=== PATIENT | male | born 1960 | race Caucasian/White ===

== ENCOUNTER 2021-09-21 11:35 | Emergency (ER) | payer SELFPAY ==
[2021-09-21 11:57] VITALS: BP 172/104; PULSE 69; RESP 16; TEMP 37.1; O2SAT 98; BMI 26.6
--- NOTE | 2021-09-21 12:20 | ED.WOUNDLAC ---
HPI - Wound/Laceration General Time Seen by Provider: 12:19 Date Seen: 09/21/21 Chief Complaint: Laceration/Wound Stated Complaint: right hand laceration Time Seen by Provider: 09/21/21 12:15 History of Present Illness HPI narrative: This 61-year-old male comes in with a laceration to his right hand. He tripped and put his hand down on a sharp piece of metal causing a laceration in the palm of his right hand overlying the 5th metatarsal. He does not have any tendon or nerve deficit. He states that his tetanus is up-to-date. Related Data Home Medications Medication Instructions Recorded Confirmed atenolol 09/21/21 citalopram 09/21/21 Allergies Allergy/AdvReac Type Severity Reaction Status Date / Time No Known Drug Allergies Allergy Verified 09/21/21 12:05 Review of Systems Status of ROS: Reports: 10 or more systems reviewed and unremarkable except as noted in History and below Narrative: Constitutional: No fevers, no weight gain or loss. Eyes: No discharge. No vision changes. HENT: No congestion, no sore throat, no ear pain. Cardiovascular: No chest pain, no palpitations. Respiratory: No shortness of breath, no wheezes, no cough. Gastrointestinal: No abdominal pain, no vomiting, no diarrhea. Genitourinary: No dysuria, no hematuria. Musculoskeletal: Normal range of motion. Skin: No rashes, no pruritis. Neurological: No dizziness, weakness, sensory change, speech change. Endo/Heme/Allergies: No bruising or bleeding. No polydipsia. Pysch: no suicidality, no anxiety, no insomnia. All other systems reviewed and are negative. Exam Narrative: Exam Narrative: Constitutional: Well-developed, well-nourished, no acute distress. HEENT: Normocephalic, atraumatic. Neck: Normal range of motion. Nontender. Supple. Heart: Intact distal pulses. Lungs: No chest discomfort. No wheezes, rhonchi, or rales. Abdomen: Nontender. Back: Normal range of motion. Extremities: Normal range of motion. Laceration in the right hand extending from the base of the palm at the ulnar aspect toward the MP joint of the 5th metatarsal. There is no tendon or nerve deficit. Range of motion is intact. The length of the wound is approximately 8 cm. Skin: Intact. No rash. Warm. No erythema or pallor. Neurologic: No altered sensation. No weakness. Alert and oriented. Psychiatric: No suicidality. No anxiety or depression. No insomnia. Nursing notes and vitals signs are reviewed. Const: Vital Signs, click to edit/add: Vital Signs - 24 hr 09/21/21 11:57 Temperature 98.7 F Pulse Rate [Left R adial] 69 Respiratory Rate 16 Blood Pressure [Le ft Upper Arm] 172/104 H Pulse Oximetry 98 Course Vital Signs Vital signs: Initial Vital Signs Temperature 98.7 F 09/21/21 11:57 Temperature Source Temporal Artery Scan 09/21/21 11:57 Pulse Rate 69 09/21/21 11:57 Pulse Rhythm 09/21/21 11:57 Pulse Strength 0+ Absent 09/21/21 11:57 Respiratory Rate 16 09/21/21 11:57 Blood Pressure 172/104 H 09/21/21 11:57 Blood Pressure Mean 126 09/21/21 11:57 Blood Pressure Position Sitting 09/21/21 11:57 Pulse Oximetry 98 09/21/21 11:57 Oxygen Delivery Method 09/21/21 11:57 Vital Signs Temperature 98.7 F 09/21/21 11:57 Pulse Rate 69 09/21/21 11:57 Respiratory Rate 16 09/21/21 11:57 Blood Pressure 172/104 H 09/21/21 11:57 Pulse Oximetry 98 09/21/21 11:57 Temperature 98.7 F 09/21/21 11:57 Pulse Rate 69 09/21/21 11:57 Respiratory Rate 16 09/21/21 11:57 Blood Pressure 172/104 H 09/21/21 11:57 Pulse Oximetry 98 09/21/21 11:57 MDM - Wound/Laceration MDM Narrative Medical decision making narrative: This patient comes in with a large laceration to his right hand. The wound was cleansed in Hibiclens and then anesthesia was acquired by using 1% lidocaine with epinephrine. The wound was further cleansed and explored to its base. He is not showing any sign of nerve or tendon dysfunction. The wound edges were approximated with 4.0 Ethilon sutures. Seventeen sutures were placed in interrupted fashion. Instructions were giving regarding wound care and the need for suture removal in 10-12 days. Discharge Plan Discharge Clinical Impression: Laceration Patient Disposition: Home, Self-Care Condition: Improved Additional Instructions: Hand laceration. Keep wound clean and dry. Return to clinic or urgent care in 10-12 days for suture removal. Activity Level: Activity as Tolerated Prescriptions: No Action atenolol 0RF citalopram 0RF Stand Alone Forms: [employer] Info Instructions
== END 2021-09-21 13:40 | disposition home or self-care (01) ==
PROVIDERS: Emergency Provider Emergency Medicine Emergency Medical Services
DX: S61.411A Laceration without foreign body of right hand, initial encounter (principal); W26.9XXA Contact with unspecified sharp object(s), initial encounter
CPT/HCPCS: 12004; 99283

== ENCOUNTER 2023-07-25 11:12 | Outpatient (CLI) | payer OTHER, SELFPAY | END 2023-07-25 11:13 | disposition home or self-care (01) | PROVIDERS: PCP Nurse Practitioner Family; Visit Provider Nurse Practitioner Family | DX: I10 Essential (primary) hypertension (principal); R06.00 Dyspnea, unspecified | CPT/HCPCS: 80053; 83880; 85025 ==